=== PATIENT | male | born 1975 | race Hispanic/Latino ===

== ENCOUNTER 2018-05-04 04:43 | Inpatient (IN) | payer OTHER ==
[2018-05-04] VITALS (21 sets, daily range): BP systolic 82–150; BP diastolic 30–96
[~2018-05-04] VITALS: Ht 167.6 cm; Wt 85.7 kg
[2018-05-04 05:07] LABS: BASOPHILS % (AUTO) 0.4 % (0.0-5.0); EOSINOPHILS % (AUTO) 0.4 % (0.0-8.0); HEMATOCRIT 46.3 % (42-54); LYMPHOCYTES % (AUTO) 14.1 % (21.0-51.0); MEAN CORPUSCULAR HEMOGLOBIN 33.8 pg (27.0-33.0); MEAN CORPUSCULAR HGB CONC 34.9 g/dL (32.0-36.0); MONOCYTES % (AUTO) 5.7 % (3.0-13.0); NEUTROPHILS % (AUTO) 79.4 % (40.0-77.0); PLATELET COUNT (AUTO) 246 K/uL (130-400); RED BLOOD CELL COUNT(AUTO) 4.77 MIL/uL (4.50-6.20); RED CELL DISTRIBUTION WIDTH 13.7 % (11.0-15.5); WHITE BLOOD COUNT (AUTO) 13.5 K/uL (4.8-10.8)
[2018-05-04] MEDS ORDERED: ASPIRIN 325 MG TABLET ONE (05:07)
[2018-05-04 05:16] LABS: CREATININE 1.1 mg/dL (0.5-1.5); POTASSIUM 3.1 mmol/L (3.5-5.1)
[2018-05-04 05:18] LABS: INR 0.97 (0.85-1.15); PARTIAL THROMBOPLASTIN TIME 25.5 SEC (26.3-35.5); PROTHROMBIN TIME 10.2 SEC (9.6-11.6)
[2018-05-04 05:29] LABS: BILIRUBIN,TOTAL 0.4 mg/dL (0.2-1.0); TOTAL PROTEIN, SERUM 7.6 g/dL (6.0-8.3)
[2018-05-04] MEDS ORDERED: MORPHINE SULFATE 2 MG/ML 1ML SYG ONE (06:29)
[2018-05-04] MEDS ORDERED: CLOPIDOGREL BISULFATE 300 MG TAB ONE (06:49)
[2018-05-04] MEDS ORDERED: HEPARIN SODIUM 5000UNIT/ML 1ML VIAL ONE (06:50)
[2018-05-04] MEDS ORDERED: SODIUM CHLORIDE 0.9% 1000ML 1,000 ML IV ONE (06:50)
[2018-05-04] MEDS ORDERED: HEPARIN SODIUM 1000UNIT/ML 10ML VIAL ONE (07:02)
[2018-05-04] MEDS ORDERED: IOHEXOL-350 50ML VIAL IV ONE (07:03)
[2018-05-04] MEDS ORDERED: DOPAMINE HCL 400 MG/D5%-WATER 0 ML IV ONE (07:03)
[2018-05-04] MEDS ORDERED: NITROGLYCERIN 5 MG/ML 10 ML VIAL IV ONE (07:03)
[2018-05-04] MEDS ORDERED: IOHEXOL 350 MG/ML 100ML INFUS..BTL IV ONE (07:03)
[2018-05-04] MEDS ORDERED: ATROPINE SULFATE 0.1 MG/ML 10 ML SYG IVP ONE (07:03)
[2018-05-04] MEDS ORDERED: LIDOCAINE HCL 2% 20ML ONE (07:03)
[2018-05-04] MEDS ORDERED: MIDAZOLAM HCL 1 MG/ML 2ML VIAL ONE (07:23)
[2018-05-04] MEDS ORDERED: MORPHINE SULFATE 4 MG/1ML SYG ONE (07:50)
[2018-05-04] MEDS ORDERED: FUROSEMIDE 10 MG/ML 2ML VIAL ONE (07:54)
[2018-05-04] MEDS ORDERED: NITROGLYCERIN 50 MG/D5% WATER 1 BOT ONE (08:21)
[2018-05-04] MEDS ORDERED: POTASSIUM CHLORIDE 10% ELIXIR 20 MEQ/15 ML UDCUP PO PRN (08:30)
[2018-05-04] MEDS ORDERED: MORPHINE SULFATE 5 MG/ML VIAL IVP SCH (08:30)
[2018-05-04] MEDS ORDERED: ONDANSETRON HCL 4 MG/2 ML VIAL IVP PRN (08:30)
[2018-05-04] MEDS ORDERED: TEMAZEPAM 30 MG CAP PO PRN (08:30)
[2018-05-04] MEDS ORDERED: LIDOCAINE HCL-MPF 1% 2ML VIAL IVP PRN (08:30)
[2018-05-04] MEDS ORDERED: ACETAMINOPHEN-CODEINE 300/30MG TAB PO PRN ×2 (08:30)
[2018-05-04] MEDS ORDERED: ONDANSETRON HCL 4 MG/2 ML VIAL IVP SCH (08:30)
[2018-05-04] MEDS ORDERED: POTASSIUM CHLORIDE 20MEQ/100ML 100 ML IV PRN (08:30)
[2018-05-04] MEDS ORDERED: NITROGLYCERIN 50 MG/D5% WATER 1 BOT IV PRN (08:30)
[2018-05-04] MEDS: CLOPIDOGREL BISULFATE 75 MG TAB PO SCH (09:00)
[2018-05-04] MEDS: ASPIRIN 81MG TAB.CHEW PO SCH (09:00)
[2018-05-04] MEDS ORDERED: LIDOCAINE HCL-MPF 1% 2ML VIAL ONE (09:57)
[2018-05-04] MEDS ORDERED: POTASSIUM CHLORIDE 20MEQ/100ML 100 ML IV ONE (09:57)
[2018-05-04] MEDS ORDERED: SODIUM CHLORIDE 0.9% 500ML 500 ML IV ONE (10:09)
[2018-05-04] MEDS: METOPROLOL TARTRATE 25 MG TAB PO SCH ×2 (12:00→21:00)
[2018-05-04] MEDS: PANTOPRAZOLE SODIUM 40 MG TABLET.DR PO SCH (12:00)
[2018-05-04] MEDS ORDERED: MORPHINE SULFATE 5 MG/ML VIAL ONE (12:50)
[2018-05-04] MEDS ORDERED: FAMOTIDINE/PF 20 MG/2 ML VIAL IV SCH (13:03)
[2018-05-04] MEDS ORDERED: SODIUM CHLORIDE 0.9% 10 ML VIAL IVP PRN (13:15)
[2018-05-04] MEDS: POTASSIUM CHLORIDE 20 MEQ ERTAB PO PRN ×3 (18:50→23:16)
[2018-05-04] MEDS: ATORVASTATIN CALCIUM 20 MG TABLET PO SCH (21:18)
[2018-05-04] MEDS: MAGNESIUM 2GM PREMIX 50ML 50 ML IV PRN ×2 (23:04→23:17)
[2018-05-05] VITALS (12 sets, daily range): BP systolic 104–136; BP diastolic 55–82
[2018-05-05] MEDS: POTASSIUM CHLORIDE 20 MEQ ERTAB PO PRN (01:04)
[2018-05-05 04:32] LABS: HEMATOCRIT 42.5 % (42-54); MEAN CORPUSCULAR HEMOGLOBIN 33.9 pg (27.0-33.0); MEAN CORPUSCULAR HGB CONC 34.7 g/dL (32.0-36.0); MEAN CORPUSCULAR VOLUME 97.5 fL (79-99); PLATELET COUNT (AUTO) 225 K/uL (130-400); RED BLOOD CELL COUNT(AUTO) 4.35 MIL/uL (4.50-6.20); RED CELL DISTRIBUTION WIDTH 13.5 % (11.0-15.5); WHITE BLOOD COUNT (AUTO) 11.4 K/uL (4.8-10.8)
[2018-05-05 05:25] LABS: CREATININE 1.1 mg/dL (0.5-1.5); POTASSIUM 3.7 mmol/L (3.5-5.1)
[2018-05-05] MEDS: PANTOPRAZOLE SODIUM 40 MG TABLET.DR PO SCH (07:46)
[2018-05-05] MEDS: CLOPIDOGREL BISULFATE 75 MG TAB PO SCH (07:46)
[2018-05-05] MEDS: LISINOPRIL 5 MG TABLET PO SCH (07:46)
[2018-05-05] MEDS: ASPIRIN 81MG TAB.CHEW PO SCH (07:46)
[2018-05-05] MEDS: POLYETHYLENE GLYCOL 3350 17 GM POWD.PACK PO SCH (07:46)
[2018-05-05] MEDS: METOPROLOL TARTRATE 25 MG TAB PO SCH ×2 (09:00→21:12)
[2018-05-05 15:12] LABS: AMPHET/METH SCREEN,URINE NEGATIVE (NEGATIVE); BARBITURATE SCREEN, URINE NEGATIVE (NEGATIVE); BENZODIAZEPINES SCREEN,URINE POSITIVE (NEGATIVE); CANNABINOID SCREEN,URINE POSITIVE (NEGATIVE); COCAINE SCREEN,URINE NEGATIVE (NEGATIVE); OPIATE SCREEN,URINE NEGATIVE (NEGATIVE); PHENCYCLIDINE SCREEN,URINE NEGATIVE (NEGATIVE)
[2018-05-05] MEDS: ATORVASTATIN CALCIUM 20 MG TABLET PO SCH (21:10)
[2018-05-06 03:28] VITALS: BP 108/74
[2018-05-06] MEDS ORDERED: METO-408 PO (06:31)
[2018-05-06] MEDS ORDERED: LISI-617 PO (06:31)
[2018-05-06] MEDS ORDERED: CLOP75TA14 PO (06:31)
[2018-05-06] MEDS ORDERED: ATOR20TA65 PO (06:31)
[2018-05-06] MEDS ORDERED: ASPI-1005 PO (06:31)
[2018-05-06 07:00] VITALS: BP 94/60
[2018-05-06] MEDS: LISINOPRIL 5 MG TABLET PO SCH (09:00)
[2018-05-06] MEDS: CLOPIDOGREL BISULFATE 75 MG TAB PO SCH (09:16)
[2018-05-06] MEDS: PANTOPRAZOLE SODIUM 40 MG TABLET.DR PO SCH (09:16)
[2018-05-06] MEDS: METOPROLOL TARTRATE 25 MG TAB PO SCH (09:16)
[2018-05-06] MEDS: ASPIRIN 81MG TAB.CHEW PO SCH (09:16)
[2018-05-06] MEDS: POLYETHYLENE GLYCOL 3350 17 GM POWD.PACK PO SCH (09:17)
[2018-05-06 11:00] VITALS: BP 109/68
== END 2018-05-06 14:18 | disposition home or self-care (01) | DRG 247 ==
LOC: EDH 04:43 → EDHIP 04:44 → 2BH 09:25 → 2CH 05-05 06:24 → 2DH 05-05 23:00
PROVIDERS: ADMIT Family Medicine; ATTEND Family Medicine
PROC: 4A023N7 Measurement of Cardiac Sampling and Pressure, Left Heart, Percutaneous Approach (ICD-10-PCS; principal; 2018-05-04)
PROC: B2111ZZ Fluoroscopy of Multiple Coronary Arteries using Low Osmolar Contrast (ICD-10-PCS; 2018-05-04)
PROC: 027034Z Dilation of Coronary Artery, One Artery with Drug-eluting Intraluminal Device, Percutaneous Approach (ICD-10-PCS; 2018-05-04)
DX: I21.19 ST elevation (STEMI) myocardial infarction involving other coronary artery of inferior wall (principal); F80.81 Childhood onset fluency disorder; E78.5 Hyperlipidemia, unspecified; F12.90 Cannabis use, unspecified, uncomplicated; F17.210 Nicotine dependence, cigarettes, uncomplicated; I10 Essential (primary) hypertension; I25.10 Atherosclerotic heart disease of native coronary artery without angina pectoris; E66.9 Obesity, unspecified; F41.9 Anxiety disorder, unspecified; Z68.30 Body mass index [BMI] 30.0-30.9, adult; Z91.19 Patient's noncompliance with other medical treatment and regimen; Z95.5 Presence of coronary angioplasty implant and graft
CPT/HCPCS: 36415; 71045; 80048; 80053; 80061; 80305; 82550; 83690; 83735; 83874; 84132; 84484; 85025; 85027; 85610; 85730; 93005; 93306; 93458; 99156; 99157; 99291; C1725; C1769; C1887; C1894; C9606; J0461; J1265; J1644; J1940; J2250; J2270; J2405; J3475; J3480; J3490; J7030; J7040; Q9967

== ENCOUNTER 2021-04-13 08:17 | Emergency (ER) | payer SELFPAY ==
[~2021-04-13] VITALS: Ht 167.6 cm; Wt 83.9 kg
[~2021-04-13 08:17] MED LIST: ASPI-1005 PO; ATOR20TA65 PO; CLOP75TA14 PO; LISI-809 PO; METO-408 PO
[2021-04-13 08:20] VITALS: BP 161/113
[2021-04-13] MEDS ORDERED: 0.9%NACL 1000ML 1,000 ML IV ONE (08:42)
[2021-04-13] MEDS ORDERED: FAMOTIDINE 20MG VIAL IV ONE (08:43)
[2021-04-13] MEDS ORDERED: ONDANSETRON 4MG INJ ONE (08:43)
[2021-04-13 08:45] LABS: BASOPHILS % (AUTO) 0.6 % (0.0-5.0); EOSINOPHILS % (AUTO) 0.2 % (0.0-8.0); HEMATOCRIT 54.6 % (42-54); LYMPHOCYTES % (AUTO) 6.4 % (21.0-51.0); MEAN CORPUSCULAR HEMOGLOBIN 33.7 pg (27.0-33.0); MEAN CORPUSCULAR HGB CONC 34.2 g/dL (32.0-36.0); MEAN CORPUSCULAR VOLUME 98.4 fL (79-99); MONOCYTES % (AUTO) 5.3 % (3.0-13.0); NEUTROPHILS % (AUTO) 87.2 % (40.0-77.0); PLATELET COUNT (AUTO) 194 K/uL (130-400); RED BLOOD CELL COUNT(AUTO) 5.55 MIL/uL (4.50-6.20); RED CELL DISTRIBUTION WIDTH 13.1 % (11.0-15.5); WHITE BLOOD COUNT (AUTO) 12.4 K/uL (4.8-10.8)
[2021-04-13] MEDS ORDERED: ONDANSETRON 4MG INJ IVP SCH (09:00)
[2021-04-13] MEDS ORDERED: FAMOTIDINE 20MG VIAL IV SCH (09:00)
[2021-04-13] MEDS ORDERED: 0.9%NACL 1000ML 1,000 ML IV SCH (09:00)
[2021-04-13 09:03] LABS: BILIRUBIN,TOTAL 0.6 mg/dL (0.2-1.0); POTASSIUM 3.4 mmol/L (3.5-5.1); TOTAL PROTEIN, SERUM 9.9 g/dL (6.0-8.3)
[2021-04-13] MEDS ORDERED: DICY20TA2 PO (09:15)
[2021-04-13] MEDS ORDERED: ONDA4TAB10 PO (09:15)
[2021-04-13] MEDS ORDERED: ACET-66 PO (09:15)
== END 2021-04-13 09:56 | disposition home or self-care (01) ==
LOC: EDH 08:17
DX: K52.9 Noninfective gastroenteritis and colitis, unspecified (principal); I12.9 Hypertensive chronic kidney disease with stage 1 through stage 4 chronic kidney disease, or unspecified chronic kidney disease; N18.9 Chronic kidney disease, unspecified; I25.10 Atherosclerotic heart disease of native coronary artery without angina pectoris; E78.00 Pure hypercholesterolemia, unspecified; Z79.82 Long term (current) use of aspirin; Z79.899 Other long term (current) drug therapy; Z95.5 Presence of coronary angioplasty implant and graft
CPT/HCPCS: 36415; 80053; 83690; 85025; 93005; 96361; 96374; 96375; 99284; J2405; J3490; J7030

== ENCOUNTER 2022-10-10 17:13 | Inpatient (IN) | payer OTHER ==
[~2022-10-10] VITALS: Ht 167.6 cm; Wt 79.4 kg
[~2022-10-10 17:13] MED LIST changes: +ACET-66 PO; +CLOP-31 PO; -CLOP75TA14 PO; +DICY20TA2 PO; -LISI-809 PO; +LISI5TAB21 PO; +ONDA4TAB10 PO
[2022-10-10] MEDS ORDERED: HEPARIN 5,000 UNIT VIAL ONE (17:19)
[2022-10-10] MEDS ORDERED: TICAGRELOR 90 MG TABLET ONE (17:19)
[2022-10-10] MEDS ORDERED: MORPHINE 4 MG SYG IVP ONE (17:30)
[2022-10-10] MEDS ORDERED: TICAGRELOR 90 MG TABLET PO SCH (17:30)
[2022-10-10] MEDS ORDERED: NITROGLYCERIN 1GM OINT 1 INCH/1GM TD ONE (17:30)
[2022-10-10] MEDS ORDERED: HEPARIN 5,000 UNIT VIAL IV ONE (17:30)
[2022-10-10 17:38] LABS: BASOPHILS % (AUTO) 0.5 % (0.0-5.0); EOSINOPHILS % (AUTO) 1.4 % (0.0-8.0); HEMATOCRIT 51.9 % (42-54); LYMPHOCYTES % (AUTO) 32.6 % (21.0-51.0); MEAN CORPUSCULAR HEMOGLOBIN 33.9 pg (27.0-33.0); MEAN CORPUSCULAR HGB CONC 33.7 g/dL (32.0-36.0); MEAN CORPUSCULAR VOLUME 100.6 fL (79-99); MONOCYTES % (AUTO) 7.7 % (3.0-13.0); NEUTROPHILS % (AUTO) 57.5 % (40.0-77.0); PLATELET COUNT (AUTO) 185 K/uL (130-400); RED BLOOD CELL COUNT(AUTO) 5.16 MIL/uL (4.50-6.20); RED CELL DISTRIBUTION WIDTH 13.2 % (11.0-15.5); WHITE BLOOD COUNT (AUTO) 7.4 K/uL (4.8-10.8)
[2022-10-10] MEDS ORDERED: LABETALOL 20MG SYG IV ONE (17:42)
[2022-10-10 17:45] VITALS: BP 153/112
[2022-10-10] MEDS ORDERED: LIDOCAINE HCL 400MG/20ML VIAL ONE (17:46)
[2022-10-10 17:47] LABS: CREATININE 1.5 mg/dL (0.5-1.5); POTASSIUM 3.5 mmol/L (3.5-5.1)
[2022-10-10] MEDS ORDERED: NITROGLYCERIN 50MG VIAL ONE (17:47)
[2022-10-10] MEDS ORDERED: HEPARIN 10,000 UNIT/10ML (1,000 UNIT/ML) VIAL ONE (17:47)
[2022-10-10] MEDS ORDERED: BIVALIRUDIN 250 MG/VIAL IV ONE (17:47)
[2022-10-10] MEDS ORDERED: IOHEXOL-350 75 ML VIAL IV ONE ×2 (17:47→18:27)
[2022-10-10 17:54] LABS: INR 0.94 (0.85-1.15); PROTHROMBIN TIME 10.3 SEC (9.6-11.6)
[2022-10-10 17:55] LABS: PARTIAL THROMBOPLASTIN TIME 23.7 SEC (26.3-35.5)
[2022-10-10] MEDS ORDERED: FENTANYL CITRATE PF 50 MCG/1 ML 2ML VIAL ONE ×2 (17:59→19:29)
[2022-10-10] MEDS ORDERED: METOPROLOL TARTRATE 1 MG/ML 5ML VIAL IV ONE (18:00)
[2022-10-10 18:05] LABS: B-TYPE NATRIURETIC PEPTIDE 376 pg/mL (0-100)
[2022-10-10 18:10] LABS: ALBUMIN 4.6 g/dL (3.5-5.0); MAGNESIUM 2.3 mg/dL (1.80-2.40); TOTAL PROTEIN, SERUM 8.9 g/dL (6.0-8.3)
[2022-10-10] MEDS ORDERED: ATROPINE 1MG SYG IVP ONE ×2 (18:12→18:15)
[2022-10-10] MEDS ORDERED: DOPAMINE HCL 400 MG/D5%-WATER 250 ML IV ONE (18:13)
[2022-10-10] MEDS ORDERED: PHENYLEPHRINE HCL 10 MG/ML 1ML VIAL IV ONE (18:20)
[2022-10-10] MEDS ORDERED: PHENYLEPHRINE HCL 10 MG/ML 5ML VIAL IV ONE (18:24)
[2022-10-10] MEDS ORDERED: NOREPINEPHRINE BITARTRATE 1 MG/1 ML ML IV ONE ×2 (18:34→18:35)
[2022-10-10] MEDS ORDERED: ONDANSETRON 4MG INJ ONE ×2 (18:44→18:48)
[2022-10-10] MEDS ORDERED: VASOPRESSIN 20 UNITS/ML 1ML VIAL ONE (18:52)
[2022-10-10] MEDS ORDERED: SODIUM BICARB 50MEQ 50ML VIAL 0 ML ONE (18:57)
[2022-10-10] MEDS ORDERED: ACETAMINOPHEN 325 MG TAB PO PRN ×4 (19:00→19:15)
[2022-10-10] MEDS ORDERED: 0.9%NACL 1000ML 1,000 ML IV SCH ×2 (19:00→19:15)
[2022-10-10] MEDS ORDERED: NITROGLYCERIN 0.4 MG SL TAB SL PRN ×2 (19:00→19:15)
[2022-10-10] MEDS ORDERED: ONDANSETRON 4MG INJ IV PRN ×2 (19:00→19:15)
[2022-10-10] MEDS ORDERED: MIDAZOLAM HCL 5 MG/ML 2ML VIAL IV ONE (19:29)
[2022-10-10] MEDS ORDERED: SODIUM BICARB 50MEQ 50ML VIAL 50 ML ONE (19:31)
[2022-10-10] MEDS ORDERED: DEXTROSE 50%-WATER 50 ML DISP.SYRIN IV ONE (19:33)
[2022-10-10] MEDS ORDERED: EPINEPHRINE 1 MG/ML 30ML VIAL IJ ONE (19:47)
[2022-10-10 20:13] LABS: HEMOGLOBIN A1C 5.2 % (4.0-6.0)
[2022-10-10] MEDS ORDERED: FAMOTIDINE 20MG TAB PO SCH ×2 (21:00)
[2022-10-10] MEDS ORDERED: EPINEPHRINE 1MG/10ML(1:10,000) 0.1 MG/ML SYG IVP ONE (23:42)
== END 2022-10-10 23:43 | DRG 249 ==
LOC: EDH 17:13 → EDHIP 17:14 → EDH 18:46 → 2CH 20:57
PROVIDERS: ADMIT Internal Medicine; ATTEND Internal Medicine
PROC: 02703DZ Dilation of Coronary Artery, One Artery with Intraluminal Device, Percutaneous Approach (ICD-10-PCS; principal; 2022-10-10)
PROC: 02703ZZ Dilation of Coronary Artery, One Artery, Percutaneous Approach (ICD-10-PCS; 2022-10-10)
PROC: 4A023N7 Measurement of Cardiac Sampling and Pressure, Left Heart, Percutaneous Approach (ICD-10-PCS; 2022-10-10)
PROC: B2111ZZ Fluoroscopy of Multiple Coronary Arteries using Low Osmolar Contrast (ICD-10-PCS; 2022-10-10)
DX: I21.09 ST elevation (STEMI) myocardial infarction involving other coronary artery of anterior wall (principal); R57.0 Cardiogenic shock; E78.00 Pure hypercholesterolemia, unspecified; I10 Essential (primary) hypertension; I25.2 Old myocardial infarction
CPT/HCPCS: 31500; 36415; 71045; 80053; 82550; 83036; 83735; 83880; 84484; 85025; 85610; 85730; 92921; 92941; 92950; 93005; 93458; 94002; C1725; C1769; C1887; C1894; G0378; J0171; J0461; J0583; J1265; J1644; J2250; J2270; J2370; J2405; J3010; J3490; J7070; Q9967